=== PATIENT | male | born 1965 | race Caucasian/White ===

== ENCOUNTER → 2021-02-17 | Outpatient (CLI) | payer OTHER ==
--- NOTE | 2021-02-17 09:40 | RAD ---
Site ID: [id number] EXAMINATION: XR SHOULDER_LEFT 2+ VIEWS. HISTORY: 55 years Male Reason: LEFT SHOULDER PAIN. COMPARISON: None. FINDINGS: No fracture, dislocation or radiopaque foreign body. Advanced degenerative changes of the glenohum eral joint is seen with the prominent marginal osteophytes. Mild degenerative changes at the AC joint is noted. IMPRESSION: Prominent degenerative changes at the glenohumeral joint. Electronically signed by: James Lou MD (02/17/2021 9:38 AM) [id number]
== END ==
LOC: RAD 08:32
PROVIDERS: ATTEND Family Medicine
DX: Z02.71 Encounter for disability determination (principal); M19.012 Primary osteoarthritis, left shoulder
CPT/HCPCS: 73030